=== PATIENT | male | born 1980 | race Caucasian/White ===

== ENCOUNTER 2024-08-08 14:47 | Outpatient (CLI) | payer BC, SELFPAY ==
--- NOTE | ~2024-08-08 | XR_ITS ---
HISTORY: Hip pain RT, NKI COMPARISON: None TECHNIQUE: 2 views of the right hip were performed FINDINGS: No acute fracture or dislocation is identified. Superior lateral sclerosis of the femoral acetabular joint space is present consistent with osteoarth ritis. Bone mineralization is age-appropriate. IMPRESSION: Degenerative disease, without acute fracture. Reviewed, dictated and finalized at location A.
--- OUTSIDE RECORDS SUMMARY | 2024-08-08 16:45 | XMS_ITS | Continuity of Care Document ---
Author Organization [facility] Address [id number] [place] [address] [address] [place] [address] Phone Care Team Providers Care Senior Cisco Network Engineer Name Role Phone Zuniga OD, Josh Unavailable Unavailable Advance Directives Directive Yes / No Effective Date File Name No Information Encounters Encounter Description Practice Location Reason(s) For Visit Diagnoses Date Provider Providers Copied on Encounter [facility], [address], [place], [place], [id number], [place] tel:[phone] [facility] No Information 7-200 2 Zuniga OD Josh. [address] , [address], [place], [address], [place]. tel:[phone] Family History Family Member Type Diagnosis Age At Onset No Information Payers Payer name Insurance type Covered alliance party ID Authoriza tion(s) No Information Social History Type Description Quantity Date Captured Comments Sex Male Smoking Status No Information Chief Complaint And Reason For Visit No Information Reason For Referral Reason For Referral No Information History Of Present Illness Encounter Date Complaint History Of Prese nt Illness No Information Functional Status Date Functional Assessmen t No Information Instructions Date Instruction Additional Infor mation No Information Assessments Type Assessment Date No Information Patient Care Teams Name Effective Dates (start - stop) Status Members No Information
--- OUTSIDE RECORDS SUMMARY | 2024-08-08 16:45 | XMS_ITS | Clinical Summary ---
Author Organization [facility] Address [address] [facility] [place] [address] Care Team Providers Care Bindery Machine Operator Name Role Phone Sumeet Gates MD Primary Care Provider [phone] Source Comments [facility],non-owned Affiliates and Associated Physician Practices is amultiple site organization consisting of ambulatory clinics and hospital sitesin [place], [place], [place] and [place]. This disclosure is being madepursuant to the Care Everywhere program and may not contain all information available regarding this patient. 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 Gender Identity Not on file Sexual Orientation Not on file Plan of Treatment Health Maintenance Due Date Last Done Comments COLOGUARD (AGES 45-75) - COL ON CA SCREENING 1978 COLON MONITORING 1978 COLONOSCOPY - COLON CA SCREENING 1978 CT COLONOGRAPHY - COLON CA SCREENING 1978 Colorectal Cancer Screening 1978 FIT - COLON CA SCREENING 1978 FLEX SIG - COLON CA SCREENING 1978 LIPID TESTING 1978 HIV SCREENING 1993 HEPATITIS C SCREENING 06/25/1996 DTAP/TDAP/TD VACCINES (1 - Tdap) 1997 HEPATITIS B VACCINE (1 of 3 - 19+ 3-dose series) 1997 COVID-19 VACCINE ( - 2023-2 5 season) 2023 DEPRESSION SCREENING 02/22/2024 INFLUENZA VACCINE (Season Ended) 2024 ZOSTER VACCINE (1 of 2) 2028 HIB VACCINE Aged Out No longer eligi ble based on patient's age to complete this topic HPV VACCINE Aged Out No longer eligi ble based on patient's age to complete this topic MENINGOCOCCAL (Group B) VACC INE SHARED DECISION-MAKING Aged Out No longer eligibl e based on patient's age to complete this topic MENINGOCOCCAL GROUPS A/C/Y/W VACCINE Aged Out No longer eligible b ased on patient's age to complete this topic PNEUMOCOCCAL VACCINE Aged Out No long er eligible based on patient's age to complete this topic Insurance [facility] Address: [address] [place] [address] [facility] Address: [address] [place] [phone] Care Teams Bindery Machine Operator Relationship Specialty Start Date End Date Sumeet Gates MD [address] [place] [address] [address] [place] [address] PCP - General 03/01/19
--- OUTSIDE RECORDS SUMMARY | 2024-08-08 16:45 | XMS_ITS | Encounter Summary ---
Author Organization [facility] Address [address] [place] [address] Care Team Providers Care Bread Wrapping Machine Feeder Name Role Phone Sumeet Gates MD Primary Care Provider [phone] Encounter Details Date Type Department Care Team (Late st Contact Info) Description 08/11/2022 Lab Requisition [facility] - DermPath Lab [address] [facility] [place] [id number] Cecelia Bernal MD [address] [facility] 3 [place] [address] Social History Tobacco Use Types Packs/Day Years Used Date Smoking Tobacco: Never Assessed Sex and Gender Information Value Date Recorded Sex Assigned at Not on file 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 Gender Identity Not on file Sexual Orientation Not on file documented as of this encounter Plan of Treatment Not on file documented as of this encounter Procedures Procedure Name Priority Date/Time Associated Diagnosis Comments DERMATOPATHOLOGY Routine 08/11/2022 11:0 8 AM CDT documented in this encounter Results * DERMATOPATHOLOGY (08/11/2022 11:08 AM CDT) Case Report Dermatopathology Report Case: [id number] Authorizing Provider: Cecelia Bernal MD Collected: 08/11/2022 11:08 AM Ordering Location: [facility] DermPath Lab Received: 08/12/2022 07:06 AM Pathologist: Sona Henry MD Specimen: Skin, left ankle 3:22 PM CDT DERMATOPATHOLOGY LABORATORY Final Diagnosis Specimen A. SKIN, left ankle: INTRADERMAL MELANOCYTIC NEVUS WITH CONGENITAL FEATURES (D22.9) 3 3:22 PM CDT DERMATOPATHOLOGY LABORATORY at 1522 CDT Clinical History R/O: MELANOMA, NEVUS, DERMATOFIBROMA, IRRITATED; BROWN PAPULE 3 3:22 PM CDT DERMATOPATHOLOGY LABORATORY Gross Description Specimen A: Received is one formalin filled container labeled with the patient's name and designated left ankle. The specimen consists of a shave biopsy measuring 7x6x1 mm. Jar 0. 3 3:22 PM CDT DERMATOPATHOLOGY LABORATORY Microscopic Description Specimen A. SKIN, left ankle: There are nests of cytologically bland melanocytes within the dermis. Some of these melanocytes are concentrated around blood vessels and adnexal structures. 3 3:22 PM CDT DERMATOPATHOLOGY LABORATORY Disclaimer An external and internal positive and negative controls are appropriate for the histochemical, immunohistochemical and immunofluorescence stain(s) in this case (if any), except where stated explicitly. The performance characteristics of the stain(s) cited in this report were developed and its performance characteristic determined by the Dermatopathology Laboratory at [facility], directed by Dr. Sherrill Henry. These tests need not be, and therefore are not, approved by the [place] Food and Drug Administration. The tests are used for clinical purposes. Billing Codes Specimen Charges Stain Charges 53433 1 3 3:22 PM CDT DERMATOPATHOLOGY LABORATORY Embedded Images 3 3:22 PM CDT DERMATOPATHOLOGY LABORATORY Pathology/Cytolo gy TISSUE SPECIMEN FROM SKIN / Unknown 08/11/2022 11:08 AM CDT 08/12/2022 7:06 AM CDT us Cecelia eBrnal MD LAB - PATHOLOGY/CYTOLOGY ORD ERABLES Final Result DERMATOPATHOLOGY LABORATORY [facility] - Department of Dermatology [facility] [address] [place] [address], [address] [phone] documented in this encounter Visit Diagnoses Not on filedocumented in this encounter Care Teams Bread Wrapping Machine Feeder Relationship Specialty Start Date End Date Sumeet Gates MD [address] [place] [address] [address] [place] [phone] PCP - General 03/01/19 documented as of this encounter
--- OUTSIDE RECORDS SUMMARY | 2024-08-08 16:45 | XMS_ITS | Patient Health Record ---
Author Organization [facility] [employer], [facility] Address [address] [place] [address] [address] [place] [address] Care Team Providers Care Canvas Baster Name Role Phone Yobany Martinez MD Primary Care Provider Fili Goldstein Unavailable [phone] Reason For Referral No Information Medications Medication SIG (Take, Route, Frequency, Duration) Notes Start Date End Date Status Na Sulfate-K Sulfate-Mg Sulf 17.5-3.13-1.6 GM/177ML ML Orally Twice a day,Follow Physician Instructions. for 1 days 11/25/2023 Active Encounters Encounter Location Date Provider Diagnosis [facility] [address] [place] [address] 12/19/2023 Fili Marroquin Colon cancer screening Z12.11 [facility], [address] [place] [address] 11/25/2023 Fili Marroquin [facility], [address] [place] [address] 11/25/2023 Fili Marroquin [facility] [address] [place] [address] 12/19/2023 Fili Marroquin Assessments Encounter Date Diagnosis (ICD Code) Assessment Notes Treatment Notes Treatment Clinical Notes Section Notes 12/19/2023 Colon cancer screening (ICD-10 - Z12.11) Plan Of Treatment No Information Insurance Providers Payer Name Payer Address Payer Phone Subscriber Number Group Number Insured Name Patient Relationship to Insured Coverage Start Date Coverage End Date Blue Access PPO E2 [address] [place] [address] [id number] Jamal Gates Self - patient is the insured Medical (General) History Medical History History ICD Code Kidney Problems Surgical History Surgery Date(Month/Year) Appendectomy
--- OUTSIDE RECORDS SUMMARY | 2024-08-08 16:45 | XMS_ITS | Encounter Summary ---
Author Organization [facility] Address [address] [place] [address] Care Team Providers Care Painter Barrel Name Role Phone Sumeet Gates MD Primary Care Provider Encounter Details Date Type Department Care Team (Late st Contact Info) Description 03/02/[address] 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 Gender Identity Not on file Sexual Orientation Not on file documented as of this encounter Plan of Treatment Not on file documented as of this encounter Procedures Procedure Name Priority Date/Time Associated Diagnosis Comments DERMATOPATHOLOGY Routine 03/01/2019 12:0 0 AM MATCHBOOK ASSEMBLER documented in this encounter Results * DERMATOPATHOLOGY (03/01/2019 12:00 AM MATCHBOOK ASSEMBLER) Case Report Dermatopathology Report Case: [id number] Authorizing Provider: Anamika Mcgovern DO Collected: 03/01/2019 12:00 AM Ordering Location: [facility] Care DermPath Lab Received: 03/02/2019 12:53 PM Pathologist: Melina Keller MD Specimen: Skin, left shoulder 0 1:12 PM MATCHBOOK ASSEMBLER DERMATOPATHOLOGY LABORATORY Final Diagnosis Specimen A. SKIN, left shoulder: DERMATOFIBROMA (D23.9) 0 1:12 PM MATCHBOOK ASSEMBLER DERMATOPATHOLOGY LABORATORY at 1312 MATCHBOOK ASSEMBLER Clinical History R/O NMSC. 0 1:12 PM MATCHBOOK ASSEMBLER DERMATOPATHOLOGY LABORATORY Gross Description Specimen A: Received is one formalin filled container labeled with the patient's name and designated left shoulder. The specimen consists of a shave measuring 3e0m0hj. Jar 0. 0 1:12 PM [facility] [[email or web address]] DERMATOPATHOLOGY LABORATORY Microscopic Description Specimen A. SKIN, left shoulder: There is epidermal hyperplasia. Within the dermis, there are fibrohistiocytic cells in haphazard array among coarse collagen bundles. 0 1:12 PM MATCHBOOK ASSEMBLER DERMATOPATHOLOGY LABORATORY Disclaimer An external and internal positive and negative controls are appropriate for the histochemical, immunohistochemical and immunofluorescence stain(s) in this case (if any), except where stated explicitly. The performance characteristics of the stain(s) cited in this report were developed and its performance characteristic determined by the Dermatopathology Laboratory at [facility], directed by Dr. Sherrill Henry. These tests need not be, and therefore are not, approved by the [place] Food and Drug Administration. The tests are used for clinical purposes. Billing Codes Specimen Charges Stain Charges 67973 1 0 1:12 PM MATCHBOOK ASSEMBLER DERMATOPATHOLOGY LABORATORY Embedded Images 0 1:12 PM [facility] [[email or web address]] DERMATOPATHOLOGY LABORATORY Pathology/Cytolog y TISSUE SPECIMEN FROM SKIN / Unknown 03/01/2019 03/02/2019 12:53 PM MATCHBOOK ASSEMBLER us Anamika Mcgovern DO LAB - PATHOLOGY/CYTOLOGY ORDERABLES Final Result DERMATOPATHOLOGY LABORATORY [facility] - Department of Dermatology [address] [place] [address], [address] [place] [address], [facility] [phone] documented in this encounter Visit Diagnoses Not on filedocumented in this encounter Care Teams Painter Barrel Relationship Specialty Start Date End Date Sumeet Gates MD [address] [place] [address] [address] [place] [phone] PCP - General 03/01/19 documented as of this encounter
== END 2024-08-08 14:48 | disposition home or self-care (01) ==
PROVIDERS: PCP Family Medicine; Visit Provider Internal Medicine
DX: M16.11 Unilateral primary osteoarthritis, right hip (principal)
CPT/HCPCS: 73502